=== PATIENT | female | born 1940 | race Hispanic/Latino ===

== ENCOUNTER 2022-10-15 10:18 | Observation (INO) | payer MEDICARE ==
[~2022-10-15] VITALS: Ht 160 cm; Wt 50.4 kg
[~2022-10-15 10:18] MED LIST: APIX2.5T PO; BETA1TAB20 PO; CALC-1125 PO; CARV6.25 PO; CYAN-35 PO; ISOS10TA8 PO; LATA2.5D14 OP; LISI40TA9 PO; METF-446 PO; NETA2.5D OU; PIOG15TA66 PO; ROSU20TA31 PO; TIMO5DRO47 OU
[2022-10-15 10:52] LABS: BASOPHILS % (AUTO) 0.5 % (0.0-5.0); EOSINOPHILS % (AUTO) 0.5 % (0.0-8.0); HEMATOCRIT 34.2 % (36-48); LYMPHOCYTES % (AUTO) 10.8 % (21.0-51.0); MEAN CORPUSCULAR HEMOGLOBIN 28.9 pg (27.0-33.0); MEAN CORPUSCULAR HGB CONC 32.2 g/dL (32.0-36.0); MEAN CORPUSCULAR VOLUME 89.8 fL (79-99); MONOCYTES % (AUTO) 12.5 % (3.0-13.0); NEUTROPHILS % (AUTO) 75.4 % (40.0-77.0); PLATELET COUNT (AUTO) 282 K/uL (130-400); RED BLOOD CELL COUNT(AUTO) 3.81 MIL/uL (4.00-5.50); RED CELL DISTRIBUTION WIDTH 19.4 % (11.0-15.5); WHITE BLOOD COUNT (AUTO) 6.4 K/uL (4.8-10.8)
[2022-10-15 10:58] LABS: APPEARANCE,URINE CLEAR (CLEAR); BILIRUBIN,URINE NEGATIVE (NEGATIVE); COLOR,URINE COLORLESS (YELLOW); GLUCOSE, URINE (UA) NEGATIVE (NEGATIVE); KETONES,URINE NEGATIVE (NEGATIVE); LEUKOCYTE ESTERASE ,URINE 25 Leu/uL (NEGATIVE); NITRATE,URINE NEGATIVE (NEGATIVE); OCCULT BLOOD,URINE NEGATIVE (NEGATIVE); PH,URINE 6.5 (5.0-8.0); PROTEIN,URINE NEGATIVE (NEGATIVE); UROBILINOGEN,URINE 0.2 mg/dL (0.2-1.0)
[2022-10-15 11:01] LABS: CREATININE 0.9 mg/dL (0.5-1.5); POTASSIUM 4.5 mmol/L (3.5-5.1)
[2022-10-15 11:04] LABS: RBC,URINE 0-1 /HPF (0-1); SQUAMOUS EPITHELIAL CELL,UR RARE /HPF (0-2)
[2022-10-15 11:06] LABS: ALBUMIN 4.1 g/dL (3.5-5.0); TOTAL PROTEIN, SERUM 7.6 g/dL (6.0-8.3)
[2022-10-15 11:14] LABS: MAGNESIUM 1.8 mg/dL (1.80-2.40)
[2022-10-15] MEDS ORDERED: SUCRALFATE 1 GM TABLET PO SCH (13:00)
[2022-10-15] MEDS ORDERED: PANTOPRAZOLE 40 MG/VIAL IVP SCH ×2 (13:00→21:00)
[2022-10-15 15:46] LABS: CHOLESTEROL 128 mg/dL (<200); HDL CHOLESTEROL 61 mg/dL (35-85); HEMOGLOBIN A1C 7.3 % (4.0-6.0); LDL DIRECT 56 mg/dL (0-99); TRIGLYCERIDES 80 mg/dL (30-200)
[2022-10-15] MEDS ORDERED: POTASSIUM CHLORIDE 20MEQ/100ML 100 ML IV PRN (17:00)
[2022-10-15] MEDS ORDERED: POTASSIUM CHLORIDE 10% ELIXIR 20 MEQ/15 ML UDCUP PO PRN (17:00)
[2022-10-15] MEDS ORDERED: GLUCAGON 1MG KIT 1 MG ML IM PRN (17:00)
[2022-10-15] MEDS ORDERED: LIDOCAINE HCL-MPF 1% 2ML VIAL IV PRN (17:00)
[2022-10-15] MEDS ORDERED: ACETAMINOPHEN 325 MG TAB PO PRN (17:00)
[2022-10-15] MEDS ORDERED: DEXTROSE 50%-WATER 50 ML DISP.SYRIN IV PRN (17:00)
[2022-10-15] MEDS ORDERED: MAGNESIUM 2GM PREMIX 50ML 50 ML IV PRN (17:00)
[2022-10-15] MEDS ORDERED: KCL 20 MEQ ERTAB PO PRN (17:00)
[2022-10-15] MEDS ORDERED: ONDANSETRON 4MG INJ IVP PRN (17:00)
[2022-10-15] MEDS ORDERED: IOHEXOL 350 MG/ML 100ML INFUS..BTL IV ONE (17:14)
[2022-10-15 17:41] VITALS: BP 146/60
[2022-10-15 20:00] VITALS: BP 123/50
[2022-10-15] MEDS ORDERED: PANT40TA54 PO (20:09)
[2022-10-15] MEDS: VIT C PO SCH (21:00)
[2022-10-15] MEDS: COPPER PO SCH (21:00)
[2022-10-15] MEDS: VIT E PO SCH (21:00)
[2022-10-15] MEDS ORDERED: METOPROLOL TARTRATE 25 MG TAB PO SCH (21:00)
[2022-10-15] MEDS: VIT A PO SCH (21:00)
[2022-10-15] MEDS ORDERED: TIMOLOL OU SCH (21:00)
[2022-10-15] MEDS: ZINC PO SCH (21:00)
[2022-10-15] MEDS ORDERED: ISOSORBIDE MONONITRATE 10 MG PO SCH (21:00)
[2022-10-15] MEDS: NETARSUDIL MESYLATE OU SCH (21:00)
[2022-10-15] MEDS: ISOSORBIDE MONONITRATE 20 MG TABLET PO SCH (21:29)
[2022-10-15] MEDS: CARVEDILOL 6.25 MG TABLET PO SCH (21:30)
[2022-10-15] MEDS: LATANOPROST 2.5 ML DROPS OP SCH (21:30)
[2022-10-15] MEDS: APIXABAN 2.5 MG TABLET PO SCH (21:30)
[2022-10-15] MEDS: TIMOLOL MALEATE 0.5% 5 ML BOTTLE OU SCH (21:30)
[2022-10-15] MEDS: ATORVASTATIN 20 MG TABLET PO SCH (21:31)
[2022-10-15] MEDS: INSULIN HUMULIN R 100 UNIT/ML 3ML SQ SCH (21:38)
[2022-10-16] VITALS (8 sets, daily range): BP systolic 112–133; BP diastolic 51–67
[2022-10-16] MEDS: INSULIN HUMULIN R 100 UNIT/ML 3ML SQ SCH ×4 (05:47→20:20)
[2022-10-16] MEDS: PANTOPRAZOLE 40 MG TAB DR PO SCH (05:47)
[2022-10-16] MEDS: REGADENOSON 0.4 MG/5 ML PF SYG IVP SCH ×2 (07:00→15:13)
[2022-10-16] MEDS ORDERED: NON-FORMULARY MEDICATION 1 EACH (Calcium Carbonate (Calcium) 600 MG) PO SCH (09:00)
[2022-10-16] MEDS: ZINC PO SCH ×2 (09:00→20:20)
[2022-10-16] MEDS: VIT A PO SCH ×2 (09:00→20:20)
[2022-10-16] MEDS ORDERED: LISINOPRIL 40 MG TABLET PO SCH (09:00)
[2022-10-16] MEDS: VIT C PO SCH ×2 (09:00→20:20)
[2022-10-16] MEDS ORDERED: ASPIRIN 81 MG EC TAB PO SCH (09:00)
[2022-10-16] MEDS: COPPER PO SCH ×2 (09:00→20:20)
[2022-10-16] MEDS ORDERED: CYANOCOBALAMIN (VITAMIN B-12) 1,000 MCG TABLET PO SCH (09:00)
[2022-10-16] MEDS: VIT E PO SCH ×2 (09:00→20:20)
[2022-10-16] MEDS ORDERED: NON-FORMULARY MEDICATION 1 EACH (Cyanocobalamin (Vitamin B-12) (Vitamin B-12) 1,000 MCG) PO SCH (09:00)
[2022-10-16] MEDS ORDERED: CALCIUM CARB 500MG PO SCH (09:00)
[2022-10-16] MEDS: CARVEDILOL 6.25 MG TABLET PO SCH ×2 (09:50→20:17)
[2022-10-16] MEDS: TIMOLOL MALEATE 0.5% 5 ML BOTTLE OU SCH ×2 (09:51→20:19)
[2022-10-16] MEDS: APIXABAN 2.5 MG TABLET PO SCH ×2 (09:51→20:15)
[2022-10-16] MEDS: NETARSUDIL MESYLATE OU SCH (20:14)
[2022-10-16] MEDS: ATORVASTATIN 20 MG TABLET PO SCH (20:15)
[2022-10-16] MEDS: ISOSORBIDE MONONITRATE 20 MG TABLET PO SCH (20:16)
[2022-10-16] MEDS: LATANOPROST 2.5 ML DROPS OP SCH (20:18)
[2022-10-17 04:00] VITALS: BP 115/63
[2022-10-17 05:08] LABS: BASOPHILS % (AUTO) 0.3 % (0.0-5.0); EOSINOPHILS % (AUTO) 0.5 % (0.0-8.0); HEMATOCRIT 30.8 % (36-48); LYMPHOCYTES % (AUTO) 12.5 % (21.0-51.0); MEAN CORPUSCULAR HEMOGLOBIN 28.6 pg (27.0-33.0); MEAN CORPUSCULAR HGB CONC 31.5 g/dL (32.0-36.0); MEAN CORPUSCULAR VOLUME 90.9 fL (79-99); MONOCYTES % (AUTO) 13.3 % (3.0-13.0); NEUTROPHILS % (AUTO) 73.1 % (40.0-77.0); PLATELET COUNT (AUTO) 264 K/uL (130-400); RED BLOOD CELL COUNT(AUTO) 3.39 MIL/uL (4.00-5.50); RED CELL DISTRIBUTION WIDTH 19.8 % (11.0-15.5); WHITE BLOOD COUNT (AUTO) 7.8 K/uL (4.8-10.8)
[2022-10-17 05:29] LABS: ALBUMIN 3.2 g/dL (3.5-5.0); CREATININE 0.8 mg/dL (0.5-1.5); POTASSIUM 4.3 mmol/L (3.5-5.1); TOTAL PROTEIN, SERUM 6.1 g/dL (6.0-8.3)
[2022-10-17] MEDS: INSULIN HUMULIN R 100 UNIT/ML 3ML SQ SCH (06:14)
[2022-10-17] MEDS: PANTOPRAZOLE 40 MG TAB DR PO SCH (06:22)
[2022-10-17 08:00] VITALS: BP 120/58
[2022-10-17] MEDS ORDERED: ISOS20TA85 PO ×2 (08:14→08:30)
[2022-10-22] MEDS ORDERED: SULF1TAB42 PO (13:49)
== END 2022-10-17 09:00 | disposition home or self-care (01) ==
LOC: EDH 10:18 → EDHIP 15:04 → 4AH 16:48
PROVIDERS: ADMIT Hospitalist; ATTEND Hospitalist
DX: R07.89 Other chest pain (principal); E87.1 Hypo-osmolality and hyponatremia; E87.8 Other disorders of electrolyte and fluid balance, not elsewhere classified; E11.65 Type 2 diabetes mellitus with hyperglycemia; I11.0 Hypertensive heart disease with heart failure; I50.33 Acute on chronic diastolic (congestive) heart failure; I44.7 Left bundle-branch block, unspecified; I25.10 Atherosclerotic heart disease of native coronary artery without angina pectoris; I48.0 Paroxysmal atrial fibrillation; D64.9 Anemia, unspecified; E78.00 Pure hypercholesterolemia, unspecified; I42.8 Other cardiomyopathies; N39.0 Urinary tract infection, site not specified; Z79.01 Long term (current) use of anticoagulants; Z90.710 Acquired absence of both cervix and uterus; Z79.82 Long term (current) use of aspirin; Z98.51 Tubal ligation status; Z90.49 Acquired absence of other specified parts of digestive tract; Z79.899 Other long term (current) drug therapy; Z98.890 Other specified postprocedural states; Z98.61 Coronary angioplasty status; Z79.84 Long term (current) use of oral hypoglycemic drugs
CPT/HCPCS: 96365; 96375; 99285; 86677; 83036; 83735 ×2; 84484 ×2; 80061; 80053 ×2; 83880; 83690; 85025 ×2; 85378; 82948 ×7; 81001; 36415 ×3; 71045; 71270; 93005; 96366; 93017; 78452; 87077; 87088; 87186; 84145; G0378 ×39; J3475; C9113; J1815 ×2; Q9967; J2785; A9500 ×2; 96374

== ENCOUNTER 2022-12-26 14:15 | Emergency (ER) | payer MEDICARE ==
[~2022-12-26] VITALS: Ht 149.9 cm; Wt 50.3 kg
[~2022-12-26 14:15] MED LIST changes: -ISOS10TA8 PO; +ISOS20TA85 PO; +PANT40TA54 PO; -ROSU20TA31 PO; +ROSU20TA73 PO; +SULF1TAB42 PO
[2022-12-26 14:33] LABS: APPEARANCE,URINE CLOUDY (CLEAR); BILIRUBIN,URINE NEGATIVE (NEGATIVE); COLOR,URINE LIGHT-YELLOW (YELLOW); GLUCOSE, URINE (UA) NEGATIVE (NEGATIVE); KETONES,URINE NEGATIVE (NEGATIVE); LEUKOCYTE ESTERASE ,URINE 500 Leu/uL (NEGATIVE); NITRATE,URINE 1+ (NEGATIVE); PH,URINE 7.5 (5.0-8.0); PROTEIN,URINE 10 mg/dL (NEGATIVE); UROBILINOGEN,URINE 0.2 mg/dL (0.2-1.0)
[2022-12-26 14:42] LABS: BACTERIA,URINE FEW /HPF (None Seen); SQUAMOUS EPITHELIAL CELL,UR RARE /HPF (0-2); WBC,URINE 51-100 /HPF (0-1); YEAST,URINE BUDDING FEW /HPF (None Seen)
[2022-12-26 15:08] LABS: BASOPHILS % (AUTO) 0.4 % (0.0-5.0); EOSINOPHILS % (AUTO) 1.2 % (0.0-8.0); HEMATOCRIT 35.7 % (36-48); LYMPHOCYTES % (AUTO) 12.7 % (21.0-51.0); MEAN CORPUSCULAR HGB CONC 31.7 g/dL (32.0-36.0); MEAN CORPUSCULAR VOLUME 94.7 fL (79-99); MONOCYTES % (AUTO) 17.9 % (3.0-13.0); NEUTROPHILS % (AUTO) 67.4 % (40.0-77.0); PLATELET COUNT (AUTO) 316 K/uL (130-400); RED BLOOD CELL COUNT(AUTO) 3.77 MIL/uL (4.00-5.50); RED CELL DISTRIBUTION WIDTH 15.2 % (11.0-15.5)
[2022-12-26 15:17] LABS: POTASSIUM 4.6 mmol/L (3.5-5.1)
[2022-12-26 15:21] LABS: ALBUMIN 3.7 g/dL (3.5-5.0); TOTAL PROTEIN, SERUM 7.2 g/dL (6.0-8.3)
[2022-12-26] MEDS ORDERED: CEFTRIAXONE 1G VIAL IM ONE (16:30)
[2022-12-26] MEDS ORDERED: CEFU500T67 PO (16:36)
[2022-12-26 17:05] VITALS: BP 128/64
== END 2022-12-26 17:12 | disposition home or self-care (01) ==
LOC: EDH 14:15
DX: N39.0 Urinary tract infection, site not specified (principal); I10 Essential (primary) hypertension; E78.00 Pure hypercholesterolemia, unspecified; E11.9 Type 2 diabetes mellitus without complications; Z88.1 Allergy status to other antibiotic agents; Z79.899 Other long term (current) drug therapy
CPT/HCPCS: 99283; 80053; 85025; 87077; 87088; 87186; 81001; 36415; 96372; J0696

== ENCOUNTER 2023-04-29 06:31 | Day surgery (SDC) | payer MEDICARE ==
[2023-04-23 11:15] LABS: BASOPHILS # (AUTO) 0.03 K/uL (0.00-0.20); BASOPHILS % (AUTO) 0.7 % (0.0-5.0); EOSINOPHILS # (AUTO) 0.06 K/uL (0.00-0.70); EOSINOPHILS % (AUTO) 1.4 % (0.0-8.0); IMMATURE GRANULOCYTE ABSOLUTE 0.01 K/uL (0-1); LYMPHOCYTES # (AUTO) 0.6 K/uL (1.0-4.8); LYMPHOCYTES % (AUTO) 14.8 % (21.0-51.0); MEAN CORPUSCULAR HEMOGLOBIN 29.5 pg (27.0-33.0); MEAN CORPUSCULAR HGB CONC 31.6 g/dL (32.0-36.0); MEAN CORPUSCULAR VOLUME 93.6 fL (79-99); MONOCYTES # (AUTO) 0.6 K/uL (0.1-1.0); MONOCYTES % (AUTO) 15.3 % (3.0-13.0); NEUTROPHILS # (AUTO) 2.8 K/uL (1.8-7.7); NEUTROPHILS % (AUTO) 67.6 % (40.0-77.0); PLATELET COUNT (AUTO) 318 K/uL (130-400); RED BLOOD CELL COUNT(AUTO) 3.42 MIL/uL (4.00-5.50); RED CELL DISTRIBUTION WIDTH 13.2 % (11.0-15.5); WHITE BLOOD COUNT (AUTO) 4.2 K/uL (4.8-10.8)
[2023-04-23 11:25] LABS: CREATININE 0.7 mg/dL (0.5-1.5); POTASSIUM 4.7 mmol/L (3.5-5.1)
[2023-04-23 11:27] LABS: INR 0.97 (0.85-1.15); PROTHROMBIN TIME 11.3 SEC (9.6-11.6)
[2023-04-23 11:28] LABS: PARTIAL THROMBOPLASTIN TIME 29.6 SEC (26.3-35.5)
[2023-04-23 11:53] VITALS: BP 148/59; PULSE 71; RESP 20
[2023-04-23 11:56] LABS: APPEARANCE,URINE CLEAR (CLEAR); BILIRUBIN,URINE NEGATIVE (NEGATIVE); COLOR,URINE COLORLESS (YELLOW); GLUCOSE, URINE (UA) NEGATIVE (NEGATIVE); KETONES,URINE NEGATIVE (NEGATIVE); LEUKOCYTE ESTERASE ,URINE 25 Leu/uL (NEGATIVE); NITRATE,URINE NEGATIVE (NEGATIVE); OCCULT BLOOD,URINE NEGATIVE (NEGATIVE); PROTEIN,URINE NEGATIVE (NEGATIVE); UROBILINOGEN,URINE 0.2 mg/dL (0.2-1.0)
[2023-04-23 13:15] LABS: ADD UA MICROSCOPIC YES
[2023-04-23 13:45] LABS: RBC,URINE 0-1 /HPF (0-1); SQUAMOUS EPITHELIAL CELL,UR RARE /HPF (0-2)
[2023-04-29] VITALS (17 sets, daily range): BP systolic 124–162; BP diastolic 54–75; PULSE 65–76; RESP 13–16
[~2023-04-29] VITALS: Ht 152.4 cm; Wt 52.1 kg
[~2023-04-29 06:31] MED LIST changes: -ISOS20TA85 PO; -PANT40TA54 PO; -PIOG15TA66 PO; -SULF1TAB42 PO
[2023-04-29] MEDS ORDERED: BOTULINUM TOXIN TYPE A 100 UNITS/VIAL INJ SCH (07:00)
[2023-04-29] MEDS ORDERED: 0.9%NACL 1000ML 1,000 ML IV ONE (07:07)
[2023-04-29] MEDS ORDERED: CEFTRIAXONE 1G VIAL ONE (07:07)
[2023-04-29] MEDS ORDERED: LIDOCAINE PF 100MG/5ML (2%) SYRINGE 5ML ONE (08:07)
[2023-04-29] MEDS ORDERED: DEXAMETHASONE SOD PHOSPHATE 10MG/ML 1ML VIAL ONE (08:07)
[2023-04-29] MEDS ORDERED: SUCCINYLCHOLINE 200MG/10ML SYR ONE (08:07)
[2023-04-29] MEDS ORDERED: GLYCOPYRROLATE 1 MG/5 ML SYRINGE ONE (08:08)
[2023-04-29] MEDS ORDERED: MIDAZOLAM HCL 1 MG/ML 2ML VIAL ONE (08:08)
[2023-04-29] MEDS ORDERED: ONDANSETRON 4MG INJ ONE (08:08)
[2023-04-29] MEDS ORDERED: PROPOFOL 10 MG/ML 20ML VIAL IV ONE (08:08)
[2023-04-29] MEDS ORDERED: ROCURONIUM 10MG/1ML SYR 10 MG/ML ML ONE (08:08)
[2023-04-29] MEDS ORDERED: NEOSTIGMINE 5MG/5ML SYR IV ONE (08:08)
[2023-04-29] MEDS ORDERED: FENTANYL CITRATE PF 50 MCG/1 ML 2ML VIAL ONE (08:09)
== END 2023-04-29 11:08 | disposition home or self-care (01) ==
LOC: DAH 06:31
PROVIDERS: ATTEND Urology
DX: N39.46 Mixed incontinence (principal); I10 Essential (primary) hypertension; E11.9 Type 2 diabetes mellitus without complications; E78.5 Hyperlipidemia, unspecified; I48.91 Unspecified atrial fibrillation; Z90.710 Acquired absence of both cervix and uterus; Z90.49 Acquired absence of other specified parts of digestive tract; Z90.89 Acquired absence of other organs; Z98.890 Other specified postprocedural states; Z79.899 Other long term (current) drug therapy
CPT/HCPCS: 80048; 85025; 85610; 85730; 87088; 81001; 36415; 93005; 52287; 82948 ×2; A6260; A4663; J7120; J3010; J0330; J3490; J1100; J2710; J7030; J2001; J0696; J2250; J2704; J2405; J0585; A4358; A4215 ×2; A4223; A4222; A4221; A4600

== ENCOUNTER 2023-05-15 08:29 | Emergency (ER) | payer MEDICARE ==
[~2023-05-15] VITALS: Ht 157.5 cm; Wt 52.2 kg
[2023-05-15 08:59] LABS: APPEARANCE,URINE TURBID (CLEAR); BILIRUBIN,URINE NEGATIVE (NEGATIVE); COLOR,URINE YELLOW (YELLOW); GLUCOSE, URINE (UA) NEGATIVE (NEGATIVE); KETONES,URINE NEGATIVE (NEGATIVE); LEUKOCYTE ESTERASE ,URINE LARGE Leu/uL (NEGATIVE); NITRATE,URINE POSITIVE (NEGATIVE); OCCULT BLOOD,URINE LARGE (NEGATIVE); PROTEIN,URINE 100 mg/dL (NEGATIVE); UROBILINOGEN,URINE 0.2 mg/dL (0.2-1.0)
[2023-05-15 09:02] LABS: ADD UA MICROSCOPIC YES
[2023-05-15 09:10] LABS: BACTERIA,URINE Few /HPF (None Seen); RBC,URINE 0-1 /HPF (0-1); SQUAMOUS EPITHELIAL CELL,UR Few /HPF (0-2); WBC,URINE TNTC /HPF (0-1)
[2023-05-15 09:29] LABS: BASOPHILS # (AUTO) 0.02 K/uL (0.00-0.20); BASOPHILS % (AUTO) 0.2 % (0.0-5.0); EOSINOPHILS # (AUTO) 0.02 K/uL (0.00-0.70); EOSINOPHILS % (AUTO) 0.2 % (0.0-8.0); HEMATOCRIT 30.9 % (36-48); IMMATURE GRANULOCYTE ABSOLUTE 0.02 K/uL (0-1); LYMPHOCYTES # (AUTO) 0.5 K/uL (1.0-4.8); LYMPHOCYTES % (AUTO) 6.3 % (21.0-51.0); MEAN CORPUSCULAR HEMOGLOBIN 28.2 pg (27.0-33.0); MEAN CORPUSCULAR HGB CONC 31.7 g/dL (32.0-36.0); MEAN CORPUSCULAR VOLUME 88.8 fL (79-99); MONOCYTES # (AUTO) 1.1 K/uL (0.1-1.0); MONOCYTES % (AUTO) 13.6 % (3.0-13.0); NEUTROPHILS # (AUTO) 6.6 K/uL (1.8-7.7); NEUTROPHILS % (AUTO) 79.5 % (40.0-77.0); PLATELET COUNT (AUTO) 274 K/uL (130-400); RED BLOOD CELL COUNT(AUTO) 3.48 MIL/uL (4.00-5.50); RED CELL DISTRIBUTION WIDTH 13.5 % (11.0-15.5); WHITE BLOOD COUNT (AUTO) 8.3 K/uL (4.8-10.8)
[2023-05-15] MEDS ORDERED: CEFTRIAXONE 1G VIAL ONE (09:29)
[2023-05-15] MEDS ORDERED: CEFTRIAXONE 1G VIAL IVPB ONE (09:30)
[2023-05-15 09:50] LABS: CREATININE 0.9 mg/dL (0.5-1.5); POTASSIUM 4.7 mmol/L (3.5-5.1)
[2023-05-15 10:01] LABS: ALBUMIN 3.7 g/dL (3.5-5.0); BILIRUBIN,TOTAL 0.4 mg/dL (0.2-1.0)
[2023-05-15 10:51] VITALS: BP 119/61; PULSE 82; RESP 17; O2SAT 99
[2023-05-15] MEDS ORDERED: CEPH500B PO (10:52)
== END 2023-05-15 11:10 | disposition home or self-care (01) ==
LOC: EDH 08:29
DX: N39.0 Urinary tract infection, site not specified (principal); M19.90 Unspecified osteoarthritis, unspecified site; E11.9 Type 2 diabetes mellitus without complications; I10 Essential (primary) hypertension; Z79.01 Long term (current) use of anticoagulants; Z79.84 Long term (current) use of oral hypoglycemic drugs; Z79.899 Other long term (current) drug therapy; Z88.1 Allergy status to other antibiotic agents
CPT/HCPCS: 99284; 96365; 80053; 85025; 87077; 87088; 87186; 81001; 36415; J0696